=== PATIENT | female | born 1960 | race Caucasian/White ===

== ENCOUNTER → 2016-10-09 | Outpatient (CLI) | payer BC ==
--- NOTE | 2016-10-10 09:07 | DI ---
Indication: ITS.REASON: R10.11 RUQ ABD PAIN US GALLBLADDER: Comparison: None Technique: Real-time and color flow imaging provided Findings: Pancreas: Shows no abnormality. Liver: Normal in size at 13.8 cm and echogenicity showing no focal masses or biliary ductal dilatation. Gallbladder: Shows no stones or debris. Wall is not thickened and no tenderness observed to transducer palpation. Right kidney is normal measuring 10.8 x 4.1 x 4.9 cm. Aorta and vena cava were unremarkable. No free fluid identified. Impression: No acute findings identified. .
== END ==
LOC: IMA 15:24
PROVIDERS: ATTEND Nurse Practitioner Family
DX: R10.11 Right upper quadrant pain (principal)